=== PATIENT | male | born 1995 | race American Indian/Alaskan Native ===

== ENCOUNTER 2019-02-24 09:58 | Emergency (ER) | payer SELFPAY ==
[2019-02-24 10:08] VITALS: BP 112/67
--- NOTE | 2019-02-24 11:04 | Emergency Department Report ---
- HPI History of Present Illness: 23 y/o male comes in for penile discharge reports that he was exposed to Chlamydia. - Exam Vital Signs: Vital Signs 02/24/19 10:06 Temperature 98.1 F Pulse Rate 62 Respiratory 18 Rate Blood Pressure 112/67 O2 Sat by Pulse 99 Oximetry Physical Exam: AxO times 3 NAD ambulating well MSE screening note: Focused history and physical exam performed. Due to findings the following was ordered: 23 y/o male comes in for penile discharge reports that he was exposed to Chlamydia. <DHAVAL DUNLAP - Last Filed: 02/24/19 10:58> - Exam Vital Signs: Vital Signs 02/24/19 10:06 Temperature 98.1 F Pulse Rate 62 Respiratory 18 Rate Blood Pressure 112/67 O2 Sat by Pulse 99 Oximetry MSE screening note: Focused history and physical exam performed. Due to findings the following was ordered: <ANATOLIY AGUDELO P - Last Filed: 02/24/19 13:25> Chief Complaint: Urogenital-Male Stated Complaint: STD EXPOSURE Time Seen by Provider: 02/24/19 10:57 ED Medical Decision Making - Medical Decision Making 23 y/o male comes in for penile discharge reports that he was exposed to Chlamydia. Patient does not meet the emergency criteria for emergency intervention. Patient recommend to follow up with the [facility] for full STI work-up. <DHAVAL DUNLAP - Last Filed: 02/24/19 10:58> - Medical Decision Making Attestation: Available for consultation <ANATOLIY AGUDELO P - Last Filed: 02/24/19 13:25> ED Disposition for MSE Is pt being admited?: No Does the pt Need Aspirin: No <DHAVAL DUNLAP - Last Filed: 02/24/19 10:58> Is pt being admited?: No <ANATOLIY AGUDELO P - Last Filed: 02/24/19 13:25> Clinical Impression: Penile discharge Disposition: Z-07 MED SCREENING EXAM-LEFT Condition: Stable Referrals: [facility] [Outside] - 3-5 Days [facility] [Outside] - 3[facility]5 Days [facility] [Outside[facility] - 3-5 Days [facility] [Outside] - 3-5 Days
== END 2019-02-24 11:30 | disposition left against medical advice (07) ==
LOC: ED 09:58
DX: R36.9 Urethral discharge, unspecified (principal)
CPT/HCPCS: 99281

== ENCOUNTER 2021-09-25 07:35 | Emergency (ER) | payer SELFPAY ==
[2021-09-25] MEDS ORDERED: predniSONE 20 MG TAB PO ONE (11:07)
[2021-09-25] MEDS ORDERED: ONDANSETRON 4 MG ODT TAB PO ONE (11:58)
--- NOTE | 2021-09-25 12:01 | Emergency Department Report ---
ED General Adult HPI - General Chief complaint: Upper Respiratory Infection Stated complaint: FLU SX Time Seen by Provider: 09/25/21 09:39 Source: patient Mode of arrival: Ambulatory Limitations: No Limitations - History of Present Illness Initial comments: 26-year-old black male with no past medical history presents to the emergency department for evaluation of 2-week history of, headache, nausea, and swollen lymph nodes. He states that he had a fever last week that has since resolved. He states that he vomited once and has had some diarrhea. He denies sick contacts or any pain. MD Complaint: Fatigue, nausea, headache, swollen lymph nodes -: Gradual, week(s) (2) Severity scale (0 -10): 0 Associated Symptoms: fever/chills, headaches, malaise, nausea/vomiting. denies: chest pain, cough, diaphoresis, loss of appetite, rash, seizure, shortness of breath, syncope, weakness Treatments Prior to Arrival: none - Related Data Previous Rx's Medication Instructions Recorded Last Taken Type Ondansetron [Zofran Odt] 4 mg PO Q8HR PRN #12 tab.rapdis 09/25/21 Unknown Rx Allergies Allergy/AdvReac Type Severity Reaction Status Date / Time No Known Allergies Allergy Unverified 02/24/19 11:03 ED Review of Systems ROS: Stated complaint: FLU SX Other details as noted in HPI Comment: All other systems reviewed and negative Constitutional: fever, malaise. denies: chills ENT: denies: throat pain, congestion Respiratory: denies: cough, shortness of breath Cardiovascular: denies: chest pain, palpitations Gastrointestinal: nausea, vomiting. denies: abdominal pain Genitourinary: denies: urgency, dysuria, frequency, hematuria, discharge Musculoskeletal: denies: back pain Skin: denies: rash, lesions Neurological: headache ED Past Medical Hx - Social History Smoking Status: Current Every Day Smoker Substance Use Type: Alcohol - Medications Home Medications: Home Medications Medication Instructions Recorded Confirmed Last Taken Type Ondansetron [Zofran Odt] 4 mg PO Q8HR PRN #12 tab.rapdis 09/25/21 Unknown Rx ED Physical Exam - General Limitations: No Limitations General appearance: alert, in no apparent distress - Head Head exam: Present: atraumatic, normocephalic - Eye Eye exam: Present: normal appearance. Absent: conjunctival injection, periorbital swelling, periorbital tenderness - ENT ENT exam: Absent: normal orophraynx (Erythema noted to posterior oropharynx) - Expanded ENT Exam Expanded Throat exam: Positive: other (Patient noted to have 1 pustule on enlarged and erythematous right tonsil) - Neck Neck exam: Present: normal inspection, lymphadenopathy (Anterior and posterior cervical). Absent: tenderness - Respiratory Respiratory exam: Present: normal lung sounds bilaterally. Absent: respiratory distress, wheezes, rales, rhonchi, stridor, chest wall tenderness - Cardiovascular Cardiovascular Exam: Present: regular rate, normal heart sounds - GI/Abdominal GI/Abdominal exam: Present: soft, normal bowel sounds. Absent: distended, tenderness, guarding, rebound, rigid - Extremities Exam Extremities exam: Present: normal inspection, full ROM, normal capillary refill. Absent: tenderness, pedal edema, joint swelling, calf tenderness - Back Exam Back exam: Present: normal inspection. Absent: CVA tenderness (R), CVA tenderness (L) - Neurological Exam Neurological exam: Present: alert, oriented X3, CN II-XII intact, normal gait, reflexes normal. Absent: motor sensory deficit - Psychiatric Psychiatric exam: Present: normal affect, normal mood - Skin Skin exam: Present: warm, dry, intact, normal color ED Course Vital Signs 09/25/21 07:38 Temperature 97.9 F Pulse Rate 75 Respiratory 18 Rate Blood Pressure 126/69 [Right] O2 Sat by Pulse 99 Oximetry ED Medical Decision Making - Medical Decision Making 26-year-old black male with no past medical history presents to the emergency department for evaluation of 2-week history of, headache, nausea, and swollen lymph nodes. He states that he had a fever last week that has since resolved. He states that he vomited once and has had some diarrhea. He denies sick contacts or any pain. Symptoms and exam suspicious for marked proximal virus. Symptoms treated with o ne-time dose of prednisone along with Zofran now and a prescription to use for later. Patient advised to consider multipart testing and given information on where to follow-up for testing. He was advised to consider isolation. He is advised to follow-up with his primary care provider for further evaluation and management and return to the emergency department as needed. He verbalizes understanding and agreement with plan of care. Critical care attestation.: If time is entered above; I have spent that time in minutes in the direct care of this critically ill patient, excluding procedure time. ED Disposition Clinical Impression: Viral syndrome Disposition: 01 HOME / SELF CARE / HOMELESS Is pt being admited?: No Does the pt Need Aspirin: No Condition: Stable Instructions: Viral Illness, Adult Additional Instructions: Take medications as prescribed. Consider isolation and testing for multiplex virus. Follow-up with your primary care provider further evaluation and management. Return to the emergency department as needed. Prescriptions: Ondansetron [Zofran Odt] 4 mg PO Q8HR PRN #12 tab.rapdis PRN Reason: Nausea And Vomiting [facility]Other[facility] Forms: Work/School Release Form(ED) Time of Disposition: 12:07
[2021-09-25 12:21] VITALS: BP 131/74
== END 2021-09-25 12:17 | disposition home or self-care (01) ==
LOC: ED 07:35
DX: B34.9 Viral infection, unspecified (principal); F17.200 Nicotine dependence, unspecified, uncomplicated; F10.20 Alcohol dependence, uncomplicated
CPT/HCPCS: 99282; J3490; Q0162